=== PATIENT | female | born 1945 | race Two or more races ===

== ENCOUNTER 2016-08-15 15:55 | Emergency (ER) | payer OTHER, MEDICAID ==
[2016-08-15 16:00] VITALS: BMI 36.5
[2016-08-15 16:11] VITALS: BP 126/80
[2016-08-15] MEDS ORDERED: TORADOL 60 MG VIAL IM ONE (16:22)
[2016-08-15] MEDS ORDERED: NORFLEX INJ IM ONE (16:22)
--- NOTE | 2016-08-15 16:22 | DR.GENAD ---
HPI - PCP Primary Care Physician: VINAY - Complaint/Symptoms Chief Complaint:: PATIENT STATED HER NECK STARTED HURTING YESTERDAY. THIS MORNING SHOULD HARDLEY GET OUT OF BED DUE TO THE PAIN Self Treatment fo Chief Complaint: ALIEVE - Nurses notes reviewed Nurses Notes Review: Yes - Source History Provided: Patient - Mode of Arrival Mode of Arrival: Ambulatory - Timing Onset of Chief Complaint: 08/14/16 PMH - PMH Past Medical History: Yes Past Medical History: Asthma, Dyslipidemia, Hypertension Past Surgical History: Yes Surgical History: Abdominal Surgery, Cholecystectomy, Hysterectomy, Ortho Surgery - Family History History of Family Medical Conditions: No - Social History Does patient currently use any type of tobacco product: No Have you used tobacco products in the last 12 months: No Type of Tobacco Use: None Does any household member use tobacco: No Alcohol Use: None Do you use any recreational Drugs:: No Lives With: Family Lives Where: Home - infectious screening In the last 2 months have you had wt loss of >10#?: NO Have you had fever, night sweats or hemotysis?: No Have you traveled outside the country in the last 6 months?: No Isolation: Standard PE - Vital Signs Vitals: Temperature 98.9 F Pulse Rate 73 Respiratory Rate 16 Blood Pressure 126/80 O2 Sat by Pulse Oximetry 100 - Diagnosis Discharge Problem: Cervical strain - Discharge Plan Condition: Stable Prescriptions: Cyclobenzaprine HCl [FLEXERIL 10 MG *] 10 mg PO TID PRN #20 tab PRN Reason: Ibuprofen [MOTRIN TAB 600 MG *] 600 mg PO TID PRN #20 tab PRN Reason: Pain/Inflammation Tramadol HCl 50 mg PO Q8H PRN #15 tab PRN Reason: Pain - Follow ups/Referrals Follow ups/Referrals: NICO JOHNSON [Primary Care Provider] - 3 days - Instructions Instructions: Cervical Strain and Sprain With [facility]hab[facility] Additional Instructions: RETURN TO ED IF WORSE.
[2016-08-15] MEDS ORDERED: NORFLEX INJ ONE (16:40)
[2016-08-15] MEDS ORDERED: TORADOL 60 MG VIAL ONE (16:40)
[2016-08-15] MEDS ORDERED: ZOFRAN INJ 4 MG VIAL IM ONE (18:37)
[2016-08-15] MEDS ORDERED: MORPHINE SULFATE INJ 4 MG IM ONE (18:37)
[2016-08-15] MEDS ORDERED: MORPHINE SULFATE INJ 4 MG ONE (18:38)
[2016-08-15] MEDS ORDERED: ZOFRAN INJ 4 MG VIAL ONE (18:41)
--- NOTE | 2016-08-15 18:47 | RAD ---
HISTORY: Neck pain Study: 6 views of the cervical spine Comparison: None Findings: C6 and C7 are partially obscured. There is slight reverse curvature of the cervical spine. The remai triny cervical vertebral body heights are relatively maintained. Neuroforaminal narrowing is suspecte d bilaterally within the lower cervical spine. Multilevel intervertebral disc space narrowing and os teophytosis are demonstrated as well. The odontoid is partially obscured. If symptoms are clinical c oncern persist followup CT and or MRI may be performed for further evaluation. IMPRESSION: 1. Degenerative changes as noted above. Reported By:
== END 2016-08-15 19:04 | disposition home or self-care (01) ==
LOC: ER 16:06
DX: S16.1XXA Strain of muscle, fascia and tendon at neck level, initial encounter (principal); Y33.XXXA Other specified events, undetermined intent, initial encounter; Y92.9 Unspecified place or not applicable
CPT/HCPCS: 72050; 96372; 99282; 99283; J1885; J2270; J2360; J2405